=== PATIENT | female | born 1970 | race Caucasian/White ===

== ENCOUNTER 2017-06-29 00:28 | Inpatient (IN) ==
[2017-06-29] MEDS ORDERED: 0.9 % Sodium Chloride 1,000 ML IVC ONE ×2 (01:53→03:10)
--- NOTE | 2017-06-29 02:02 | Emergency Department Note ---
Disposition Clinical Impression: Dehydration, Acute kidney injury, Hypokalemia, Hyponatremia Diarrhea Qualifiers: Diarrhea type: unspecified type Qualified Code(s): R19.7 - Diarrhea, unspecified Leukocytosis Qualifiers: Leukocytosis type: unspecified Qualified Code(s): D72.829 - Elevated white blood cell count, unspecified Disposition: Admitted As Inpatient Condition: Fair Time of Disposition: 05:00 Nausea/Vomiting/Diarrhea HPI - General Chief complaint: ED Nausea/Vomiting/Diarrhea Stated complaint: diarrhea Time Seen by Provider: 06/29/17 01:46 Source: patient Limitations: no limitations - History of Present Illness HPI Narrative: Nontoxic-appearing 46-year-old female presents for evaluation of ongoing diarrhea that has been intermittent in nature for the past 10 days. This is also accompanied by a mild degree of generalized weakness/fatigue. She denies any associated abdominal pain, nausea, vomiting, fever, chills, chest pain, shortness of breath, urinary symptoms, hematochezia, melena, or hematemesis. She denies any known sick contacts. She denies any recent antibiotic usage. She states that the diarrhea is watery in nature. There is no blood or mucus. Pt Subjective Complaint: diarrhea Onset (ago): day(s) (10) Description of Diarrhea: water Associated Abdominal Pain: No Improves with: nothing Worsens with: nonthing Associated symptoms: Reports: weakness. Denies: diaphoresis, fever/chills, nausea/vomiting, dysuria, shortness of breath, syncope - Related Data Allergies Allergy/AdvReac Type Severity Reaction Status Date / Time No Known Allergies Allergy Verified 06/29/17 00:29 All systems ED: reviewed and negative except as stated. Constitutional: Reports: as per HPI, weakness. Denies: fever, chills, weight change Eyes: Denies: eye pain, eye discharge, vision change ENT ED: Denies: ear pain, throat pain, dental pain, hearing loss, epistaxis, congestion, dysphagia Cardiovascular: Denies: chest pain, palpitations, dyspnea on exertion, edema, syncope Respiratory: Denies: cough, dyspnea, wheezes, hemoptysis, stridor Gastrointestinal: Reports: as per HPI, diarrhea. Denies: abdominal pain, nausea , vomiting, constipation, hematemesis, melena, hematochezia Genitourinary: Denies: dysuria, frequency, hematuria, discharge Musculoskeletal: Denies: back pain, neck pain, arthralgia, myalgia Integumentary: Denies: rash, abrasion, lesions Neurological: Denies: headache, weakness, numbness, paresthesias, confusion, abnormal gait, vertigo Psychiatric: Denies: anxiety, depression, suicidal thoughts, homicidal thoughts , auditory hallucinations, visual hallucinations Endocrine: Denies: fatigue Hematological/Lymphatic: Denies: easy bleeding, easy bruising Allergic/Immunologic: Denies: facial swelling, urticaria Past Medical History - Past Medical History Attestation: Yes The following information was validated with the patient. Source: patient, nursing notes reviewed Medical history: Reports: hypertension Psychiatric history: Reports: no psych history - Social History Smoking Status: Never smoker Smokeless Tobacco Status: No Alcohol use: Reports: none Drug use: Reports: none Physical Exam - General Limitations: no limitations General appearance: alert, in no apparent distress - Head Head exam: atraumatic, normocephalic, normal inspection - Eye Eye exam: Present: normal appearance, PERRL, EOMI. Absent: nystagmus - ENT ENT exam: mucous membranes dry - Neck Neck exam: Present: normal inspection, full ROM, trachea midline - Chest Chest inspection: Present: normal inspection, symmetric chest wall rise - Respiratory Respiratory exam: Present: normal lung sounds bilaterally. Absent: respiratory distress, wheezes, accessory muscle use, prolonged expiratory phase - Cardiovascular Cardiovascular exam: Present: regular rate, normal rhythm, normal heart sounds - Abdominal Exam Abdominal exam: Present: soft, Non-Tender, normal bowel sounds. Absent: distention, guarding, rebound, rigidity - Extremities Exam Extremities exam: Present: normal inspection, full ROM. Absent: tenderness, pedal edema - Neurological Exam Neurological exam: Present: alert, oriented X3 - Psychiatric Psychiatric exam: Present: normal affect, normal mood - Skin Skin exam: Present: warm, dry, intact, normal color Course Course Narrative: 0450: I spoke with Dr. Roche, general surgeon airport operations specialist regarding this patient's case, presentation, laboratory, and imaging results. He states he does not feel that this is an acute appendicitis. He states that cecal wall thickening is not uncommon with the degree of reported diarrhea. He states that the patient will likely need serial CT imaging for follow-up of the "abscess cavities" visualized in the pelvis. He recommends antibiotic therapy directed towards nonspecific ulcerative colitis and treatment of her diarrhea. He states that surgery will be happy to consult the patient will need admitted to the hospitalist service for further management. I have discussed this patient's case with Dr. Sorensen. He has had a face-to- face evaluation with the patient. I have discussed Dr. Roche's recommendations and he is in agreement. Dr. Cruz, hospitalist airport operations specialist has been notified. He accepts the patient for further observation and treatment of her diarrhea, hyponatremia, hypokalemia, dehydration, and acute kidney injury. He recommends initiation of Cipro and Flagyl by IV piggyback. Vital Signs Temperature 99.3 F 06/29/17 00:29 Pulse Rate 98 06/29/17 00:29 Respiratory Rate 16 06/29/17 00:29 Blood Pressure 130/82 06/29/17 00:29 O2 Sat by Pulse Oximetry 96 06/29/17 00:29 Temperature 99.3 F 06/29/17 00:29 Pulse Rate 92 06/29/17 04:46 Respiratory Rate 18 06/29/17 04:46 Blood Pressure 115/76 06/29/17 04:46 O2 Sat by Pulse Oximetry 95 06/29/17 04:46 Oxygen Delivery Oxygen Delivery Room Air Nausea/Vomiting/Diarrhea - Medical Records Medical records reviewed: Yes I reviewed the patient's medical records. - Lab Data Lab results reviewed: Yes I reviewed the patient's lab results. Lab results narrative: Lab Results 06/29/17 06/29/17 06/29/17 Range/Units 02:30 02:30 03:45 WBC 18.3 H (4.3-11.1) K/mcL RBC 4.62 (3.82-4.97) M/mcL Hgb 12.2 (11.5-15.4) g/dL Hct 37.0 (35.3-44.9) % MCV 80.1 L (83.0-100.0) fL MCH 26.4 L (28.0-33.3) pg MCHC 33.0 (31.6-35.5) g/dL RDW 13.7 (11.5-14.5) % Plt Count 233 (140-400) K/mcL MPV 10.1 (9.4-12.4) fL Immature Gran % 1.6 (0-4) % Seg Neutrophils % 82.7 % Lymphocytes % 3.3 % Monocytes % 12.0 % Eosinophils % 0.1 % Basophils % 0.3 % Neutrophils # 15.2 H (1.6-8.9) K/mcL Lymphocytes # 0.6 (0.6-4.6) K/mcL Monocytes # 2.2 H (0.0-1.3) K/mcL Eosinophils # 0.0 (0.0-0.6) K/mcL Basophils # 0.1 (0.0-0.2) K/mcL Sodium 131 L (136-145) mEq/L Potassium 2.7 L (3.5-5.1) mEq/L Chloride 91 L (98-107) mEq/L Carbon Dioxide 28 (23-29) mEq/L BUN 17 (6-20) mg/dL Creatinine 1.26 H (0.60-1.20) mg/dL Est GFR ( Amer) 55 L (> 60) Est GFR (Non-Af Amer) 46 L (> 60) BUN/Creatinine Ratio 13 (6-26) Glucose 113 H (70-105) mg/dL Calculated Osmolality 274 L (280-300) Calcium 9.0 (8.6-10.3) mg/dL Magnesium 1.6 (1.6-2.6) mg/dL Total Bilirubin 1.2 H (0.3-1.0) mg/dL AST 19 (13-39) Units/L ALT 32 (7-52) Units/L Alkaline Phosphatase 140 H (34-104) Units/L Serum Total Protein 6.5 (6.4-8.9) g/dL Albumin 3.2 L (3.5-5.7) g/dL Globulin 3.3 (2.4-3.5) g/dL Albumin/Globulin Ratio 1.0 L (1.1-2.2) Lipase 16 (11-82) Units/L Urine Color Yellow (Yellow) Urine Clarity Cloudy A (Clear) Urine pH 6.0 (5.0-8.0) pH Units Ur Specific [place] 1.010 (1.010-1.025) Urine Protein 30 H (Neg-Trace) mg/dL Urine Glucose (UA) Normal (Normal) mg/dL Urine Ketones Trace H (Negative) mg/dL Urine Blood Negative (Negative) Urine Nitrite Negative (Negative) Urine Bilirubin Negative (Negative) Urine Urobilinogen Normal (Normal) mg/dL Ur Leukocyte Esterase Trace H (Negative) Urine Microscopic RBC 0-3 (0-3) per hpf Urine Microscopic WBC 15-30 H (0-3) per hpf Ur Squamous Epith Cells Many H (None-Few) per lpf Ur Transition Epith Cell Moderate H (None-Few) per hpf Urine Bacteria Few (None-Few) per hpf Hyaline Casts Few (None-Few) per lpf Ur Culture Indicated? NO. (NO) Urine Test (Negative) 06/29/17 Range/Units 03:45 WBC (4.3-11.1) K/mcL RBC (3.82-4.97) M/mcL Hgb (11.5-15.4) g/dL Hct (35.3-44.9) % MCV (83.0-100.0) fL MCH (28.0-33.3) pg MCHC (31.6-35.5) g/dL RDW (11.5-14.5) % Plt Count (140-400) K/mcL MPV (9.4-12.4) fL Immature Gran % (0-4) % Seg Neutrophils % % Lymphocytes % % Monocytes % % Eosinophils % % Basophils % % Neutrophils # (1.6-8.9) K/mcL Lymphocytes # (0.6-4.6) K/mcL Monocytes # (0.0-1.3) K/mcL Eosinophils # (0.0-0.6) K/mcL Basophils # (0.0-0.2) K/mcL Sodium (136-145) mEq/L Potassium (3.5-5.1) mEq/L Chloride (98-107) mEq/L Carbon Dioxide (23-29) mEq/L BUN (6-20) mg/dL Creatinine (0.60-1.20) mg/dL Est GFR ( Amer) (> 60) Est GFR (Non-Af Amer) (> 60) BUN/Creatinine Ratio (6-26) Glucose (70-105) mg/dL Calculated Osmolality (280-300) Calcium (8.6-10.3) mg/dL Magnesium (1.6-2.6) mg/dL Total Bilirubin (0.3-1.0) mg/dL AST (13-39) Units/L ALT (7-52) Units/L Alkaline Phosphatase (34-104) Units/L Serum Total Protein (6.4-8.9) g/dL Albumin (3.5-5.7) g/dL Globulin (2.4-3.5) g/dL Albumin/Globulin Ratio (1.1-2.2) Lipase (11-82) Units/L Urine Color (Yellow) Urine Clarity (Clear) Urine pH (5.0-8.0) pH Units Ur Specific [place] (1.010-1.025) Urine Protein (Neg-Trace) mg/dL Urine Glucose (UA) (Normal) mg/dL Urine Ketones (Negative) mg/dL Urine Blood (Negative) Urine Nitrite (Negative) Urine Bilirubin (Negative) Urine Urobilinogen (Normal) mg/dL Ur Leukocyte Esterase (Negative) Urine Microscopic RBC (0-3) per hpf Urine Microscopic WBC (0-3) per hpf Ur Squamous Epith Cells (None-Few) per lpf Ur Transition Epith Cell (None-Few) per hpf Urine Bacteria (None-Few) per hpf Hyaline Casts (None-Few) per lpf Ur Culture Indicated? (NO) Urine Test Negative (Negative) Result diagrams: 06/29/17 02:30 06/29/17 02:30 Lab Results 06/29/17 06/29/17 06/29/17 Range/Units 02:30 02:30 03:45 WBC 18.3 H (4.3-11.1) K/mcL RBC 4.62 (3.82-4.97) M/mcL Hgb 12.2 (11.5-15.4) g/dL Hct 37.0 (35.3-44.9) % MCV 80.1 L (83.0-100.0) fL MCH 26.4 L (28.0-33.3) pg MCHC 33.0 (31.6-35.5) g/dL RDW 13.7 (11.5-14.5) % Plt Count 233 (140-400) K/mcL MPV 10.1 (9.4-12.4) fL Immature Gran % 1.6 (0-4) % Seg Neutrophils % 82.7 % Lymphocytes % 3.3 % Monocytes % 12.0 % Eosinophils % 0.1 % Basophils % 0.3 % Neutrophils # 15.2 H (1.6-8.9) K/mcL Lymphocytes # 0.6 (0.6-4.6) K/mcL Monocytes # 2.2 H (0.0-1.3) K/mcL Eosinophils # 0.0 (0.0-0.6) K/mcL Basophils # 0.1 (0.0-0.2) K/mcL Sodium 131 L (136-145) mEq/L Potassium 2.7 L (3.5-5.1) mEq/L Chloride 91 L (98-107) mEq/L Carbon Dioxide 28 (23-29) mEq/L BUN 17 (6-20) mg/dL Creatinine 1.26 H (0.60-1.20) mg/dL Est GFR ( Amer) 55 L (> 60) Est GFR (Non-Af Amer) 46 L (> 60) BUN/Creatinine Ratio 13 (6-26) Glucose 113 H (70-105) mg/dL Calculated Osmolality 274 L (280-300) Calcium 9.0 (8.6-10.3) mg/dL Magnesium 1.6 (1.6-2.6) mg/dL Total Bilirubin 1.2 H (0.3-1.0) mg/dL AST 19 (13-39) Units/L ALT 32 (7-52) Units/L Alkaline Phosphatase 140 H (34-104) Units/L Serum Total Protein 6.5 (6.4-8.9) g/dL Albumin 3.2 L (3.5-5.7) g/dL Globulin 3.3 (2.4-3.5) g/dL Albumin/Globulin Ratio 1.0 L (1.1-2.2) Lipase 16 (11-82) Units/L Urine Color Yellow (Yellow) Urine Clarity Cloudy A (Clear) Urine pH 6.0 (5.0-8.0) pH Units Ur Specific [place] 1.010 (1.010-1.025) Urine Protein 30 H (Neg-Trace) mg/dL Urine Glucose (UA) Normal (Normal) mg/dL Urine Ketones Trace H (Negative) mg/dL Urine Blood Negative (Negative) Urine Nitrite Negative (Negative) Urine Bilirubin Negative (Negative) Urine Urobilinogen Normal (Normal) mg/dL Ur Leukocyte Esterase Trace H (Negative) Urine Microscopic RBC 0-3 (0-3) per hpf Urine Microscopic WBC 15-30 H (0-3) per hpf Ur Squamous Epith Cells Many H (None-Few) per lpf Ur Transition Epith Cell Moderate H (None-Few) per hpf Urine Bacteria Few (None-Few) per hpf Hyaline Casts Few (None-Few) per lpf Ur Culture Indicated? NO. (NO) Urine Test (Negative) 06/29/17 Range/Units 03:45 WBC (4.3-11.1) K/mcL RBC (3.82-4.97) M/mcL Hgb (11.5-15.4) g/dL Hct (35.3-44.9) % MCV (83.0-100.0) fL MCH (28.0-33.3) pg MCHC (31.6-35.5) g/dL RDW (11.5-14.5) % Plt Count (140-400) K/mcL MPV (9.4-12.4) fL Immature Gran % (0-4) % Seg Neutrophils % % Lymphocytes % % Monocytes % % Eosinophils % % Basophils % % Neutrophils # (1.6-8.9) K/mcL Lymphocytes # (0.6-4.6) K/mcL Monocytes # (0.0-1.3) K/mcL Eosinophils # (0.0-0.6) K/mcL Basophils # (0.0-0.2) K/mcL Sodium (136-145) mEq/L Potassium (3.5-5.1) mEq/L Chloride (98-107) mEq/L Carbon Dioxide (23-29) mEq/L BUN (6-20) mg/dL Creatinine (0.60-1.20) mg/dL Est GFR ( Amer) (> 60) Est GFR (Non-Af Amer) (> 60) BUN/Creatinine Ratio (6-26) Glucose (70-105) mg/dL Calculated Osmolality (280-300) Calcium (8.6-10.3) mg/dL Magnesium (1.6-2.6) mg/dL Total Bilirubin (0.3-1.0) mg/dL AST (13-39) Units/L ALT (7-52) Units/L Alkaline Phosphatase (34-104) Units/L Serum Total Protein (6.4-8.9) g/dL Albumin (3.5-5.7) g/dL Globulin (2.4-3.5) g/dL Albumin/Globulin Ratio (1.1-2.2) Lipase (11-82) Units/L Urine Color (Yellow) Urine Clarity (Clear) Urine pH (5.0-8.0) pH Units Ur Specific [place] (1.010-1.025) Urine Protein (Neg-Trace) mg/dL Urine Glucose (UA) (Normal) mg/dL Urine Ketones (Negative) mg/dL Urine Blood (Negative) Urine Nitrite (Negative) Urine Bilirubin (Negative) Urine Urobilinogen (Normal) mg/dL Ur Leukocyte Esterase (Negative) Urine Microscopic RBC (0-3) per hpf Urine Microscopic WBC (0-3) per hpf Ur Squamous Epith Cells (None-Few) per lpf Ur Transition Epith Cell (None-Few) per hpf Urine Bacteria (None-Few) per hpf Hyaline Casts (None-Few) per lpf Ur Culture Indicated? (NO) Urine Test Negative (Negative) - Radiology Data Radiology results reviewed: Yes I reviewed the patient's radiology results. Abdomen/Pelvis CT 06/29/17 03:00 IMPRESSION: There are multiple abscess cavities in the pelvis. Perforated appendicitis should be considered as the appendix is not definitely identified and there is thickening of the cecum. D/ / Rivera Sharp MD / Rivera Sharp MD Interpreting Provider: Rivera Sharp MD Chest X-Ray 06/29/17 03:11 IMPRESSION: Right basilar atelectasis or pneumonia. D/ / Rivera Sharp MD / Rivera Sharp MD Interpreting Provider: Rivera Sharp MD - EKG Data EKG attestation: Yes I reviewed and interpreted this EKG. EKG results narrative: EKG reviewed by Dr. Sorensen as well. EKG shows a sinus rhythm at a rate of 93 bpm. OH interval 168, QRS duration 93, QT/QTc interval 344/395. No ectopy noted. No STEMI. Attestation Statement - Attestation Attestation: I, Dawit Sorensen MD, personally evaluated this patient and discussed their management with the midlevel provicer, PAC/STEEL DETAILER. I reviewed the midlevel provider 's note and agree with the documented findings, medical decision making, and plan of care. 46-year-old female presents to the emergency department with a complaint of diarrhea and generalized weakness. Patient states that the diarrhea started about 9 days ago and she had watery diarrhea for 1 day or may be too. This then resolved and she did fine for several days until a few days ago when the diarrhea returned. The diarrhea has been bad for the last 24 hours and she complains of just severe generalized weakness. No fever. No abdominal pain. No melena, hematemesis, or hematochezia. No urinary symptoms. On examination patient is a well-developed well-nourished well-appearing female in no acute distress. She is alert and oriented 3. There is no cyanosis or diaphoresis. Breath sounds are clear and equal bilaterally. Heart regular rate and rhythm. Abdomen is soft and nontender with slightly increased bowel sounds. No guarding or rebound tenderness. No CVA tenderness. Labs reviewed. CT of the abdomen was suspicious for perforated appendicitis. Mid-level discussed the case with the surgeon on-call, Dr. Roche, and he did not feel the patient had appendicitis with her history and lack of abdominal pain. He recommended admission by the hospitalist and he will consult on the patient. The hospitalist, Dr. Cruz, was consulted and accepted admission of the patient.
[2017-06-29 02:42] LABS: Basophils # 0.1 K/mcL (0.0-0.2); Basophils % 0.3 %; Eosinophils % 0.1 %; Hemoglobin 12.2 g/dL (11.5-15.4); Immature Granulocytes % 1.6 % (0-4); Lymphocytes # 0.6 K/mcL (0.6-4.6); Lymphocytes % 3.3 %; Mean Corpuscular Hemoglobin 26.4 pg (28.0-33.3); Mean Corpuscular Volume 80.1 fL (83.0-100.0); Mean Platelet Volume 10.1 fL (9.4-12.4); Monocytes # 2.2 K/mcL (0.0-1.3); Neutrophils # 15.2 K/mcL (1.6-8.9); Platelet Count 233 K/mcL (140-400); Red Blood Count 4.62 M/mcL (3.82-4.97); Red Cell Distribution Width 13.7 % (11.5-14.5); Segmented Neutrophils % 82.7 %
[2017-06-29 03:03] LABS: Albumin 3.2 g/dL (3.5-5.7); Bilirubin,Total 1.2 mg/dL (0.3-1.0); Globulin 3.3 g/dL (2.4-3.5); Magnesium 1.6 mg/dL (1.6-2.6); Potassium 2.7 mEq/L (3.5-5.1); Total Protein 6.5 g/dL (6.4-8.9)
[2017-06-29] MEDS ORDERED: Potassium Chloride 40 MEQ, Lidocaine 1% 2 ML in D5% in Water 500 ML IVPB ONE (03:10)
[2017-06-29 04:02] LABS: Bilirubin,Urine Negative (Negative); Blood,Urine Negative (Negative); Clarity,Urine Cloudy (Clear); Color,Urine Yellow (Yellow); Glucose,Urine (UA) Normal (Normal); Ketones,Urine Trace mg/dL (Negative); Leukocyte Esterase,Urine Trace (Negative); Nitrite,Urine Negative (Negative); Protein,Urine 30 mg/dL (Neg-Trace); Urobilinogen,Urine Normal (Normal)
[2017-06-29 04:04] LABS: Hyaline Casts,Urine Few per lpf (None-Few); RBC,Urine 0-3 per hpf (0-3); Squamous Epithelial Cell,Urine Many per lpf (None-Few); WBC,Urine 15-30 per hpf (0-3)
[2017-06-29 04:18] LABS: Bacteria,Urine Few per hpf (None-Few); Transitional Epi Cells,Urine Moderate per hpf (None-Few)
[2017-06-29] MEDS ORDERED: MetroNIDAZOLE 500 MG/100 ML 500 MG/100 ML BAG IVPB ONE (05:10)
[2017-06-29] MEDS ORDERED: Ondansetron 4 MG/2 ML VIAL IVP PRN (08:14)
[2017-06-29] MEDS ORDERED: *HR* Morphine 2 MG/ML SYRINGE IVP PRN (08:14)
--- NOTE | 2017-06-29 08:22 | Internal Med History&Physical ---
Date of Encounter: 06/29/17 Time of Encounter: 08:19 Assessment and Plan (1) Diarrhea Current visit: Yes Status: Acute Check stool studies including C diff, culture, ova and parasites will be checked. contact precautions Qualifiers: Qualified Code(s): R19.7 - Diarrhea, unspecified (2) Pelvic abscess in female Current visit: Yes Status: Acute Etiology unclear. We will cover the patient for now with antibiotics Zosyn Flagyl. Appreciate surgery and gastroenterology input. On CT scan there is mention of rupture appendixes a cause. Abdominal exam during my interview is benign with no suggestion of appendicitis (3) Hypokalemia Current visit: Yes Status: Acute Due to diarrhea replace and recheck. (4) Elevated troponin Current visit: Yes Status: Acute Due to demand ischemia. Trend troponin (5) HEATHER (acute kidney injury) Current visit: Yes Status: Acute due to dehydration: hydrate. Internal Medicine - H&P: HPI Chief complaint: diarrhea History of present illness: Ms. 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 For the past 10 days patient has been having watery diarrhea approximately one episode every 4 hours. She has not noticed any blood or mucous stool. She denies any abdominal pain. Appetite has declined and she has later been eating clear liquids. She had low-grade fever on arrival to emergency room temperature 99.3. She started experiencing generalized weakness lethargy. She denies any recent antibiotic use. No recent travel. She denies any hematemesis melena or hematochezia. She works in the hospital around patients. She denies any prior similar symptoms. Never had a colonoscopy. No family history of inflammatory bowel disease. Prior abdominal surgeries include 2 C-sections. Past Med Surg Social Fam HX - Past Medical History Medical history: hypertension Psychiatric history: no psych history - Past Surgical History Surgical History: - Social History Smoking Status: Never smoker Smokeless Tobacco Status: No Alcohol use: none Drug use: none Internal Medicine - H&P: Meds 3 Allergy/AdvReac Type Severity Reaction Status Date / Time No Known Allergies Allergy Verified 06/29/17 00:29 All Systems PM: A 10-system review of systems was performed and is negative for pertinent findings except as documented above in the HPI. Review of systems: 10 point review of systems is negative except for HPI - Constitutional Vitals: Temp Pulse Resp BP Pulse Ox 99.3 F 93 16 118/78 94 06/29/17 06:20 06/29/17 06:20 06/29/17 06:20 06/29/17 06:20 06/29/17 06:20 Exam: Gen.: patient is alert oriented times 3 not in distress. Cardiac: normal S1 S2 no additional sounds are murmurs. Chest: clear to auscultation. Abdomen: soft nontender nondistended. Lower extremity no swelling mucous membranes: moist Internal Med - H&P Results - Labs CBC & Chem 7: 06/29/17 02:30 06/29/17 02:30
[2017-06-29] MEDS: Piperacillin/Tazobactam 3.375 GM/200 ML BAG IVPB SCH ×2 (09:42→17:30)
[2017-06-29] MEDS: Pantoprazole 40 MG VIAL IVP SCH (09:42)
[2017-06-29 11:18] LABS: Adenovirus F 40/41 PCR Not detected (Not detect); Astrovirus PCR Not detected (Not detect); C.difficile Toxin A/B by PCR Not detected (Not detect); Campylobacter by PCR Not detected (Not detect); Cryptosporidium by PCR Not detected (Not detect); Cyclospora cayetanensis PCR Not detected (Not detect); E. coli O157 by PCR Not detected (Not detect); Entamoeba histolytica PCR Not detected (Not detect); Enteroaggregative E.coli(EAEC) Not detected (Not detect); Enteropathogenic E.coli(EPEC) Not detected (Not detect); Enterotoxigenic E.coli (ETEC) Not detected (Not detect); Giardia lamblia PCR Not detected (Not detect); Norovirus GI/GII PCR Not detected (Not detect); Plesiomonas shigelloides PCR Not detected (Not detect); Rotavirus A PCR Not detected (Not detect); Salmonella PCR Not detected (Not detect); Sapovirus PCR Not detected (Not detect); Shig/EnteroinvasiveE coli EIEC Not detected (Not detect); Shigalike tox-prod E coli STEC Not detected (Not detect); Vibrio PCR Not detected (Not detect); Vibrio cholerae PCR Not detected (Not detect); Yersinia enterocolitica PCR Not detected (Not detect)
[2017-06-29 12:11] LABS: Alanine Aminotransferase 25 Units/L (7-52); Albumin 2.6 g/dL (3.5-5.7); Albumin/Globulin Ratio 0.9 (1.1-2.2); Alkaline Phosphatase 115 Units/L (34-104); Aspartate Amino Transferase 14 Units/L (13-39); BUN/Creatinine Ratio 11 (6-26); Blood Urea Nitrogen 12 mg/dL (6-20); Calcium 8.3 mg/dL (8.6-10.3); Carbon Dioxide 27 mEq/L (23-29); Chloride 99 mEq/L (98-107); Glucose 100 mg/dL (70-105); Osmolality,Calculated 280 (280-300); Sodium 135 mEq/L (136-145); Total Protein 5.6 g/dL (6.4-8.9); eGFR For African Americans > 60 (> 60); eGFR For Non-African Americans 56 (> 60)
--- NOTE | 2017-06-29 17:00 | General Surgery Consult Note ---
<Chioma Dominguez - Last Filed: 06/29/17 16:57> Date of Encounter: 06/29/17 Time of Encounter: 08:30 Assessment and Plan (1) Diarrhea Current Visit: Yes Status: Acute Concerning for infectious vs inflammatory diarrhea. Appendicitis unlikely due to physical exam findings. Patient reports consistent diarrhea since . 5 to [address] Watery st[address] a day. CT abd/pelvis demonstrate multiple abscess cavities and pelvis. Thickened cecum. Perforated appendix considered according to CT. Abdominal exam was benign. Bowel sounds present. No tenderness, guarding, rebound afebrile, hemodynamically stable WBC 18.3 There is no indication for surgery on this patient at this time. Recommend gastroenterology to see patient due to most likely infectious vs inflammatory cause of diarrhea continue IV antibiotics clear liquid diet IVF Qualifiers: Diarrhea type: unspecified type Qualified Code(s): R19.7 - Diarrhea, unspecified History of Present Illness Consult date: 06/29/17 Reason for consult: other (Diarrhea) Requesting physician: Franko Machado History of present illness: Ms Peterson is a 46yo female with a past medical history of hypertension who presented to [facility] complaining of watery diarrhea that started and has been consistent since . She has about 5 to 6 watery diarrhea a day. Nothing made the diarrhea better or worse. [facility]. She works out [employer]. She has not been on antibiotics recently and has no history of C.diff. She denied traveling. She denied abdominal pain, melena, nausea, vomiting, chest pain, shortness of breath. Past Med Surg Social Fam HX - Past Medical History Medical history: hypertension Psychiatric history: no psych history - Past Surgical History Surgical History: - Social History Smoking Status: Never smoker Smokeless Tobacco Status: No Alcohol use: none Drug use: none Medications and Allergies Labetalol HCl [Labetalol HCl] 200 mg PO DAILY 06/29/17 [History] Triamterene/HCTZ 37.5/25mg [Dyazide] 1 tab PO DAILY 06/29/17 [History] 3 Allergy/AdvReac Type Severity Reaction Status Date / Time No Known Allergies Allergy Verified 06/29/17 00:29 Review of Systems All systems PM: A 10-system review of systems was performed and is negative for pertinent findings except as documented above in the HPI. - Constitutional fever(s), weakness, no chills - Cardiovascular no chest pain, no palpitations - Respiratory no cough, no dyspnea - Gastrointestinal diarrhea, no abdominal pain, no constipation, no hematochezia, no melena, no nausea, no vomiting - Genitourinary Genitourinary: no dysuria General Surgery Exam Initial Vital Signs Temp Pulse Resp BP Pulse Ox 99.3 F 98 16 130/82 96 06/29/17 00:29 06/29/17 00:06/29/17 00:06/29/17 00:29 06/29/17 00:29 - General physical appearance well developed, well nourished, no distress - Eyes normal ocular movement. negative: icteric - Respiratory normal expansion, normal respiratory effort, clear to auscultation - Cardiovascular Cardiovascular exam: Present: RRR - Abdomen Abdomen general surgery: Present: bowel sounds present, soft, non tender. Absent: guarding, rebound - Psychiatric Psychiatric general surgery: Present: A&Ox3 Exam Initial Vital Signs Temp Pulse Resp BP Pulse Ox 99.3 F 98 16 130/82 96 06/29/17 00:29 06/29/17 00:29 06/29/17 00:29 06/29/17 00:29 06/29/17 00:29 Results - Labs 06/29/17 02:30 06/29/17 11:50 Abnormal lab results WBC 18.3 K/mcL (4.3-11.1) H 06/29/17 02:30 MCV 80.1 fL (83.0-100.0) L 06/29/17 02:30 MCH 26.4 pg (28.0-33.3) L 06/29/17 02:30 Neutrophils # 15.2 K/mcL (1.6-8.9) H 06/29/17 02:30 Monocytes # 2.2 K/mcL (0.0-1.3) H 06/29/17 02:30 Sodium 135 mEq/L (136-145) L 06/29/17 11:50 Potassium 3.0 mEq/L (3.5-5.1) L 06/29/17 11:50 Est GFR (Non-Af Amer) 56 (> 60) L 06/29/17 11:50 Calcium 8.3 mg/dL (8.6-10.3) L 06/29/17 11:50 Magnesium 1.5 mg/dL (1.6-2.6) L 06/29/17 09:57 Alkaline Phosphatase 115 Units/L (34-104) H 06/29/17 11:50 Serum Total Protein 5.6 g/dL (6.4-8.9) L 06/29/17 11:50 Albumin 2.6 g/dL (3.5-5.7) L 06/29/17 11:50 Albumin/Globulin Ratio 0.9 (1.1-2.2) L 06/29/17 11:50 Urine Clarity Cloudy (Clear) A 06/29/17 03:45 Urine Protein 30 mg/dL (Neg-Trace) H 06/29/17 03:45 Urine Ketones Trace mg/dL (Negative) H 06/29/17 03:45 Ur Leukocyte Esterase Trace (Negative) H 06/29/17 03:45 Urine Microscopic WBC 15-30 per hpf (0-3) H 06/29/17 03:45 Ur Squamous Epith Cells Many per lpf (None-Few) H 06/29/17 03:45 Ur Transition Epith Cell Moderate per hpf (None-Few) H 06/29/17 03:45 Diabetes panel 06/29/17 06/29/17 Range/Units 09:57 11:50 Sodium 135 L (136-145) mEq/L Potassium 3.0 L 3.0 L (3.5-5.1) mEq/L Chloride 99 (98-107) mEq/L Carbon Dioxide 27 (23-29) mEq/L BUN 12 (6-20) mg/dL Creatinine 1.06 (0.60-1.20) mg/dL Glucose 100 (70-105) mg/dL Calcium 8.3 L (8.6-10.3) mg/dL AST 14 (13-39) Units/L ALT 25 (7-52) Units/L Alkaline Phosphatase 115 H (34-104) Units/L Albumin 2.6 L (3.5-5.7) g/dL Calcium panel 06/29/17 Range/Units 11:50 Calcium 8.3 L (8.6-10.3) mg/dL Albumin 2.6 L (3.5-5.7) g/dL Pituitary panel 06/29/17 06/29/17 Range/Units 09:57 11:50 Sodium 135 L (136-145) mEq/L Potassium 3.0 L 3.0 L (3.5-5.1) mEq/L Chloride 99 (98-107) mEq/L Carbon Dioxide 27 (23-29) mEq/L BUN 12 (6-20) mg/dL Creatinine 1.06 (0.60-1.20) mg/dL Glucose 100 (70-105) mg/dL Calcium 8.3 L (8.6-10.3) mg/dL Adrenal panel 06/29/17 06/29/17 Range/Units 09:57 11:50 Sodium 135 L (136-145) mEq/L Potassium 3.0 L 3.0 L (3.5-5.1) mEq/L Chloride 99 (98-107) mEq/L Carbon Dioxide 27 (23-29) mEq/L BUN 12 (6-20) mg/dL Creatinine 1.06 (0.60-1.20) mg/dL Glucose 100 (70-105) mg/dL Calcium 8.3 L (8.6-10.3) mg/dL Total Bilirubin 1.0 (0.3-1.0) mg/dL AST 14 (13-39) Units/L ALT 25 (7-52) Units/L Alkaline Phosphatase 115 H (34-104) Units/L Albumin 2.6 L (3.5-5.7) g/dL All other labs normal. Consult Discharge Plan - Plan Referrals: Jas Monge MD [Primary Care Provider] - <Rikki Roche - Last Filed: 06/29/17 18:08> Date of Encounter: 06/29/17 Review of Systems All systems PM: A 10-system review of systems was performed and is negative for pertinent findings except as documented above in the HPI. General Surgery Exam Initial Vital Signs Temp Pulse Resp BP Pulse Ox 99.3 F 98 16 130/82 96 06/29/17 00:29 06/29/17 00:29 06/29/17 00:29 06/29/17 00:06/29/17 00:29 Exam Initial Vital Signs Temp Pulse Resp BP Pulse Ox 99.3 F 98 16 130/82 96 06/29/17 00:29 06/29/17 00:29 06/29/17 00:29 06/29/17 00:29 06/29/17 00:29 Results - Labs 06/29/17 02:30 06/29/17 11:50 Abnormal lab results WBC 18.3 K/mcL (4.3-11.1) H 06/29/17 02:30 MCV 80.1 fL (83.0-100.0) L 06/29/17 02:30 MCH 26.4 pg (28.0-33.3) L 06/29/17 02:30 Neutrophils # 15.2 K/mcL (1.6-8.9) H 06/29/17 02:30 Monocytes # 2.2 K/mcL (0.0-1.3) H 06/29/17 02:30 Sodium 135 mEq/L (136-145) L 06/29/17 11:50 Potassium 3.0 mEq/L (3.5-5.1) L 06/29/17 11:50 Est GFR (Non-Af Amer) 56 (> 60) L 06/29/17 11:50 Calcium 8.3 mg/dL (8.6-10.3) L 06/29/17 11:50 Magnesium 1.5 mg/dL (1.6-2.6) L 06/29/17 09:57 Alkaline Phosphatase 115 Units/L (34-104) H 06/29/17 11:50 Serum Total Protein 5.6 g/dL (6.4-8.9) L 06/29/17 11:50 Albumin 2.6 g/dL (3.5-5.7) L 06/29/17 11:50 Albumin/Globulin Ratio 0.9 (1.1-2.2) L 06/29/17 11:50 Urine Clarity Cloudy (Clear) A 06/29/17 03:45 Urine Protein 30 mg/dL (Neg-Trace) H 06/29/17 03:45 Urine Ketones Trace mg/dL (Negative) H 06/29/17 03:45 Ur Leukocyte Esterase Trace (Negative) H 06/29/17 03:45 Urine Microscopic WBC 15-30 per hpf (0-3) H 06/29/17 03:45 Ur Squamous Epith Cells Many per lpf (None-Few) H 06/29/17 03:45 Ur Transition Epith Cell Moderate per hpf (None-Few) H 06/29/17 03:45 Diabetes panel 06/29/17 06/29/17 Range/Units 09:57 11:50 Sodium 135 L (136-145) mEq/L Potassium 3.0 L 3.0 L (3.5-5.1) mEq/L Chloride 99 (98-107) mEq/L Carbon Dioxide 27 (23-29) mEq/L BUN 12 (6-20) mg/dL Creatinine 1.06 (0.60-1.20) mg/dL Glucose 100 (70-105) mg/dL Calcium 8.3 L (8.6-10.3) mg/dL AST 14 (13-39) Units/L ALT 25 (7-52) Units/L Alkaline Phosphatase 115 H (34-104) Units/L Albumin 2.6 L (3.5-5.7) g/dL Calcium panel 06/29/17 Range/Units 11:50 Calcium 8.3 L (8.6-10.3) mg/dL Albumin 2.6 L (3.5-5.7) g/dL Pituitary panel 06/29/17 06/29/17 Range/Units 09:57 11:50 Sodium 135 L (136-145) mEq/L Potassium 3.0 L 3.0 L (3.5-5.1) mEq/L Chloride 99 (98-107) mEq/L Carbon Dioxide 27 (23-29) mEq/L BUN 12 (6-20) mg/dL Creatinine 1.06 (0.60-1.20) mg/dL Glucose 100 (70-105) mg/dL Calcium 8.3 L (8.6-10.3) mg/dL Adrenal panel 06/29/17 06/29/17 Range/Units 09:57 11:50 Sodium 135 L (136-145) mEq/L Potassium 3.0 L 3.0 L (3.5-5.1) mEq/L Chloride 99 (98-107) mEq/L Carbon Dioxide 27 (23-29) mEq/L BUN 12 (6-20) mg/dL Creatinine 1.06 (0.60-1.20) mg/dL Glucose 100 (70-105) mg/dL Calcium 8.3 L (8.6-10.3) mg/dL Total Bilirubin 1.0 (0.3-1.0) mg/dL AST 14 (13-39) Units/L ALT 25 (7-52) Units/L Alkaline Phosphatase 115 H (34-104) Units/L Albumin 2.6 L (3.5-5.7) g/dL All other labs normal. - Attending Attestation I examined this patient and my medical decision-making was reviewed with the Resident Physician. I agree with the documented findings, disposition and treatment plan as described except to the extent set forth below. The patient is seen and evaluated with rest and on morning rounds. The patient has onset of nonbloody diarrhea associated with mild abdominal discomfort. There are fluid collections in the abdomen and the entire colon is edematous by CAT scan. I personally reviewed the CAT scan images and feel the findings are consistent with infectious colitis. Inflammatory colitis is less likely. I have recommended an infectious workup of her diarrhea, likely C. difficile. I am also recommending gastroenterology evaluation. Rikki Roche MD FACS
[2017-06-29] MEDS: 0.9 % Sodium Chloride 1,000 ML IVC SCH (17:25)
[2017-06-29] MEDS: MetroNIDAZOLE 500 MG/100 ML 500 MG/100 ML BAG IVPB SCH (17:26)
[2017-06-29] MEDS: *HR* Heparin 5,000 UNIT/ML VIAL SQ SCH (17:33)
[2017-06-30] MEDS: MetroNIDAZOLE 500 MG/100 ML 500 MG/100 ML BAG IVPB SCH ×4 (01:16→23:41)
[2017-06-30] MEDS: Piperacillin/Tazobactam 3.375 GM/200 ML BAG IVPB SCH ×4 (01:17→23:40)
[2017-06-30 04:39] LABS: Basophils % 0.2 %; Eosinophils % 0.2 %; Hematocrit 32.4 % (35.3-44.9); Hemoglobin 10.3 g/dL (11.5-15.4); Immature Granulocytes % 0.9 % (0-4); Lymphocytes # 0.5 K/mcL (0.6-4.6); Mean Corpuscular HGB Conc 31.8 g/dL (31.6-35.5); Mean Corpuscular Hemoglobin 25.9 pg (28.0-33.3); Mean Corpuscular Volume 81.4 fL (83.0-100.0); Mean Platelet Volume 10.4 fL (9.4-12.4); Monocytes # 1.6 K/mcL (0.0-1.3); Neutrophils # 10.8 K/mcL (1.6-8.9); Platelet Count 184 K/mcL (140-400); Red Blood Count 3.98 M/mcL (3.82-4.97); Red Cell Distribution Width 13.8 % (11.5-14.5); Segmented Neutrophils % 82.7 %
[2017-06-30] MEDS: 0.9 % Sodium Chloride 1,000 ML IVC SCH ×2 (04:44→14:51)
[2017-06-30] MEDS: *HR* Heparin 5,000 UNIT/ML VIAL SQ SCH ×2 (04:45→17:53)
[2017-06-30 04:47] LABS: Alanine Aminotransferase 20 Units/L (7-52); Albumin 2.5 g/dL (3.5-5.7); Alkaline Phosphatase 96 Units/L (34-104); Aspartate Amino Transferase 11 Units/L (13-39); BUN/Creatinine Ratio 9 (6-26); Bilirubin,Total 0.9 mg/dL (0.3-1.0); Blood Urea Nitrogen 9 mg/dL (6-20); C-Reactive Protein 196 mg/L (Less than 10); Carbon Dioxide 26 mEq/L (23-29); Chloride 100 mEq/L (98-107); Globulin 2.6 g/dL (2.4-3.5); Glucose 95 mg/dL (70-105); Magnesium 1.4 mg/dL (1.6-2.6); Osmolality,Calculated 276 (280-300); Potassium 2.8 mEq/L (3.5-5.1); Sodium 134 mEq/L (136-145); Total Protein 5.1 g/dL (6.4-8.9); eGFR For African Americans > 60 (> 60); eGFR For Non-African Americans 57 (> 60)
[2017-06-30] MEDS: Pantoprazole 40 MG VIAL IVP SCH (07:59)
[2017-06-30] MEDS ORDERED: Potassium Chloride 40 MEQ, Lidocaine 1% 2 ML in D5% in Water 500 ML IVPB ONE (08:02)
[2017-06-30] MEDS ORDERED: Potassium Chloride 40 MEQ, Lidocaine 1% 2 ML in D5% in Water 500 ML IVPB SCH (08:45)
--- NOTE | 2017-06-30 08:55 | General Surgery Progress Note ---
Addendum entered and electronically signed by Chioma Dominguez DO 06/30/17 09:38: Patient reported that she knew her potassium was low yesterday and no one replaced it. We assured her we would address it today. Original Note: <AlbertoChioma - Last Filed: 06/30/17 08:51> Date of Encounter: 06/30/17 Time of Encounter: 07:00 - Assessment and Plan (1) Diarrhea Current Visit: Yes Status: Acute Concerning for infectious vs inflammatory diarrhea. Appendicitis unlikely due to physical exam findings. WBC 13.1 improving, hemodynamically stable Stool tests were negative for infectious and parasitic etiology thus far Abdominal exam was benign. Bowel sounds present. No tenderness, guarding, rebound Patient reports consistent non bloody diarrhea since [place]. 5-6 Watery stools a day. CT abd/pelvis demonstrate multiple abscess cavities and pelvis. Thickened cecum. Perforated appendix considered according to CT. There is no indication for surgery on this patient at this time. Recommend gastroenterology to see patient due to most likely infectious vs inflammatory cause of diarrhea continue IV antibiotics zosyn day 2 and flagyl day 2 clear liquid diet IVF Qualifiers: Diarrhea type: unspecified type Qualified Code(s): R19.7 - Diarrhea, unspecified Subjective Patient reports: feels better, bowel movement, nausea, afebrile Narrative: She reported that her diarrhea is improving and she is having less episodes. She had a couple bowel movements in the night but they were more formed. She had nausea overnight. No fever, chills, or other complaints. Objective Vital Signs - Last 8 Hours Temp Pulse Resp BP Pulse Ox 06/30/17 07:34 101.9 F H 88 14 122/81 96 06/30/17 05:00 98.4 F 91 18 115/59 97 Intake and Output 06/29/17 06/30/17 06/30/17 23:59 07:59 15:59 Intake Total 300 / 300 1900 / 1900 Balance 300 / 300 1900 / 1900 Intake: IV Fluids 300 / 300 1100 / 1100 0.9 % Sodium Chloride 1,000 ML 1000 / 1000 @ 100 mls/hr IVC .Q10H SARAH Rx#: [id number] Flagyl Premix 500 MG/100 ML 500 100 / 100 100 / 100 mg In 100 ml @ 100 mls/hr IVPB Q8HR SARAH Rx#:[id number] Zosyn Premix 3.375 GM/200 ML 3. 200 / 200 375 gm In 200 ml @ 50 mls/hr IVPB Q8H SARAH Rx#:[id number] Oral 800 / 800 Other: # Voids 5 3 # Bowel Movements 2 Weight 85.4 kg Patient Weight 06/30/17 23:59 Weight 85.4 kg - General physical appearance well developed, well nourished, no distress - Eyes normal ocular movement - ENT normal nares - Respiratory normal expansion, normal respiratory effort, clear to auscultation - Cardiovascular Cardiovascular exam: Present: RRR - Abdomen Abdomen: Present: bowel sounds present, soft, non tender. Absent: guarding, rebound - Integumentary no abnormal pigmentation - Psychiatric oriented to time, oriented to person, oriented to place - Labs 06/30/17 03:45 06/30/17 03:45 Diabetes panel 06/29/17 06/29/17 06/30/17 Range/Units 09:57 11:50 03:45 Sodium 135 L 134 L (136-145) mEq/L Potassium 3.0 L 3.0 L 2.8 L (3.5-5.1) mEq/L Chloride 99 100 (98-107) mEq/L Carbon Dioxide 27 26 (23-29) mEq/L BUN 12 9 (6-20) mg/dL Creatinine 1.06 1.03 (0.60-1.20) mg/dL Glucose 100 95 (70-105) mg/dL Calcium 8.3 L 8.0 L (8.6-10.3) mg/dL AST 14 11 L (13-39) Units/L ALT 25 20 (7-52) Units/L Alkaline Phosphatase 115 H 96 (34-104) Units/L Albumin 2.6 L 2.5 L (3.5-5.7) g/dL Calcium panel 06/29/17 06/30/17 Range/Units 11:50 03:45 Calcium 8.3 L 8.0 L (8.6-10.3) mg/dL Albumin 2.6 L 2.5 L (3.5-5.7) g/dL Pituitary panel 06/29/17 06/29/17 06/30/17 Range/Units 09:57 11:50 03:45 Sodium 135 L 134 L (136-145) mEq/L Potassium 3.0 L 3.0 L 2.8 L (3.5-5.1) mEq/L Chloride 99 100 (98-107) mEq/L Carbon Dioxide 27 26 (23-29) mEq/L BUN 12 9 (6-20) mg/dL Creatinine 1.06 1.03 (0.60-1.20) mg/dL Glucose 100 95 (70-105) mg/dL Calcium 8.3 L 8.0 L (8.6-10.3) mg/dL Adrenal panel 06/29/17 06/29/17 06/30/17 Range/Units 09:57 11:50 03:45 Sodium 135 L 134 L (136-145) mEq/L Potassium 3.0 L 3.0 L 2.8 L (3.5-5.1) mEq/L Chloride 99 100 (98-107) mEq/L Carbon Dioxide 27 26 (23-29) mEq/L BUN 12 9 (6-20) mg/dL Creatinine 1.06 1.03 (0.60-1.20) mg/dL Glucose 100 95 (70-105) mg/dL Calcium 8.3 L 8.0 L (8.6-10.3) mg/dL Total Bilirubin 1.0 0.9 (0.3-1.0) mg/dL AST 14 11 L (13-39) Units/L ALT 25 20 (7-52) Units/L Alkaline Phosphatase 115 H 96 (34-104) Units/L Albumin 2.6 L 2.5 L (3.5-5.7) g/dL Consult Discharge Plan - Plan Referrals: Jas Monge MD [Primary Care Provider] - <Rikki Roche - Last Filed: 07/01/17 08:55> Date of Encounter: 06/30/17 Objective Vital Signs - Last 8 Hours Temp Pulse Resp BP Pulse Ox 07/01/17 06:44 99.8 F H 99 15 128/77 96 07/01/17 04:21 97.9 F 91 17 123/71 96 Intake and Output 06/30/17 07/01/17 07/01/17 23:59 07:59 15:59 Intake Total 660 / 660 1000 / 1000 Output Total 200 / 200 Balance 660 / 660 800 / 800 Intake: IV Fluids 300 / 300 1000 / 1000 0.9 % Sodium Chloride 1,000 ML 1000 / 1000 @ 75 mls/hr IVC .[id number] SARAH Rx #:[id number] Flagyl Premix 500 MG/100 ML 500 100 / 100 mg In 100 ml @ 100 mls/hr IVPB Q8HR SARAH Rx#:[id number] Zosyn Premix 3.375 GM/200 ML 3. 200 / 200 375 gm In 200 ml @ 50 mls/hr IVPB Q8H SARAH Rx#:[id number] Oral 360 / 360 Output: Urine 200 / 200 Other: Weight 84 kg Patient Weight 07/01/17 23:59 Weight 84 kg - Labs 07/01/17 04:15 07/01/17 04:15 Diabetes panel 07/01/17 Range/Units 04:15 Sodium 136 (136-145) mEq/L Potassium 2.9 L (3.5-5.1) mEq/L Chloride 104 (98-107) mEq/L Carbon Dioxide 23 (23-29) mEq/L BUN 7 (6-20) mg/dL Creatinine 0.98 (0.60-1.20) mg/dL Glucose 100 (70-105) mg/dL Calcium 8.2 L (8.6-10.3) mg/dL Calcium panel 07/01/17 Range/Units 04:15 Calcium 8.2 L (8.6-10.3) mg/dL Phosphorus 2.4 L (2.7-4.5) mg/dL Pituitary panel 07/01/17 Range/Units 04:15 Sodium 136 (136-145) mEq/L Potassium 2.9 L (3.5-5.1) mEq/L Chloride 104 (98-107) mEq/L Carbon Dioxide 23 (23-29) mEq/L BUN 7 (6-20) mg/dL Creatinine 0.98 (0.60-1.20) mg/dL Glucose 100 (70-105) mg/dL Calcium 8.2 L (8.6-10.3) mg/dL Adrenal panel 07/01/17 Range/Units 04:15 Sodium 136 (136-145) mEq/L Potassium 2.9 L (3.5-5.1) mEq/L Chloride 104 (98-107) mEq/L Carbon Dioxide 23 (23-29) mEq/L BUN 7 (6-20) mg/dL Creatinine 0.98 (0.60-1.20) mg/dL Glucose 100 (70-105) mg/dL Calcium 8.2 L (8.6-10.3) mg/dL - Attending Attestation I examined this patient and my medical decision-making was reviewed with the Resident Physician. I agree with the documented findings, disposition and treatment plan as described except to the extent set forth below. The patient was seen and evaluated with the resident on morning rounds. She only had 2 bowel movements. Her pancolitis is improved. I would like to have her evaluated by gastroenterology. We will sign off at this point. Rikki Roche MD FACS
--- NOTE | 2017-06-30 09:46 | Electrocardiograph Report ---
[place] [id number] Test Date: 2017-06-29 Pat Name: Aziza Peterson Department: 102 Room: [facility] Gender: F Twister Hand: Alverto : 1970 Requested By: Franko Machado Order Number: [id number] Reading MD: Sabrina Garcia Measurements Intervals [place] Rate: 93 P: 55 NH: 168 QRS: 29 QRSD: 93 T: 60 QT: 344 QTc: 395 Interpretive Statements SINUS RHYTHM Electronically Signed On 06-30-2017 9:44:38 EST by Sabrina Garcia
--- NOTE | 2017-06-30 11:31 | Internal Med Progress Note ---
Date of Encounter: 06/30/17 Time of Encounter: 10:45 - Assessment and plan (1) Diarrhea Current Visit: Yes Status: Acute Assessment and plan: Improving concern for infectious vs. inflammatory process continue Zosyn and Flagyl surgery evaluation appreciated GI evaluation requested clear liquid diet IV fluids leukocytosis persists but improved from previous day Qualifiers: Diarrhea type: unspecified type Qualified Code(s): R19.7 - Diarrhea, unspecified (2) Pelvic abscess in female Current Visit: Yes Status: Acute Assessment and plan: clinically improving will f/u with GI given size of the abscess, concern if pt will need surgical evaluation for drainage GI and surgery on board continue empiric abx at this time (3) Acute kidney injury Current Visit: Yes Status: Resolved (4) Hypertension Current Visit: Yes Status: Acute Assessment and plan: BP within acceptable range however noted to have HR in 90s Pt on Labetalol 200mg PO qd at home, will start at labetalol 100mg pO qd will closely monitor Qualifiers: Hypertension type: unspecified Qualified Code(s): I10 - Essential (primary ) hypertension (5) Elevated troponin Current Visit: Yes Status: Acute Assessment and plan: serial TNI trending down no signs of angina present at this time will continue to closely monitor (6) DVT prophylaxis Current Visit: Yes Status: Acute Assessment and plan: Heparin SQ (7) Electrolyte abnormality Current Visit: Yes Status: Acute Assessment and plan: Hypokalemia and Hypomagnesemia K and Mg supplemented continue to monitor electrolytes and replace as needed - Subjective Interval history: Patient seen and examined at bedside. Resting in bed and reports of improvement in her diarrhea States she had one semi formed bowel movement this morning Denies any abd pain, n/v at this time Pt potassium currently being replaced 40meq IV x 2 doses I spoke with Dr. Hutchinson who will see the patient later today. - Constitutional Vitals: Temp Pulse Resp BP Pulse Ox 101.9 F H 88 14 122/81 96 06/30/17 07:34 06/30/17 07:34 06/30/17 07:34 06/30/17 07:34 06/30/17 07:34 General appearance: Present: A&O X 3, no acute distress, answers questions appropriately - Head Head exam: Present: atraumatic, normocephalic - Eye Eye exam: Present: conjuntiva pink, sclera anicteric - Respiratory Respiratory exam: Present: CTAB. Absent: accessory muscle use, rales, rhonchi, wheezes - Cardiovascular Cardiovascular exam: Present: RRR, +S1, +S2. Absent: diastolic murmur, gallop, rubs, systolic murmur - GI/Abdominal GI/Abdominal exam: Present: normal bowel sounds, soft, no peritoneal signs. Absent: distended, tenderness - Extremities Exam Extremities exam: Present: warm, radial pulses palpable and symmetrical. Absent : calf tenderness, pedal edema - Neurological Exam Neurological exam: Present: alert, oriented X3 Internal Medicine: Result - Labs CBC & Chem 7: 06/30/17 03:45 06/30/17 03:45 Labs: Short CBC 06/30/17 Range/Units 03:45 WBC 13.1 H (4.3-11.1) K/mcL Hgb 10.3 L D (11.5-15.4) g/dL Hct 32.4 L (35.3-44.9) % Plt Count 184 (140-400) K/mcL Neutrophils # 10.8 H (1.6-8.9) K/mcL BMP 06/29/17 06/30/17 11:50 03:45 Sodium 135 L 134 L Potassium 3.0 L 2.8 L Chloride 99 100 Carbon Dioxide 27 26 BUN 12 9 Creatinine 1.06 1.03 Glucose 100 95 Calcium 8.3 L 8.0 L Cardiac Enzymes 06/29/17 Range/Units 16:15 Troponin I 0.03 (< 0.04) ng/mL Liver Function 06/29/17 06/30/17 Range/Units 11:50 03:45 Total Bilirubin 1.0 0.9 (0.3-1.0) mg/dL AST 14 11 L (13-39) Units/L ALT 25 20 (7-52) Units/L Alkaline Phosphatase 115 H 96 (34-104) Units/L Albumin 2.6 L 2.5 L (3.5-5.7) g/dL Consult Discharge Plan - Plan Referrals: Jas Monge MD [Primary Care Provider] -
--- NOTE | 2017-06-30 16:06 | Gastroenterology Consult Note ---
<Abdon Lewis Jaret - Last Filed: 06/30/17 16:02> Date of Encounter: 06/30/17 Time of Encounter: 12:15 - Assessment and plan (1) Diarrhea Current Visit: Yes Status: Acute Assessment and plan: Improving. Pt with 10 days of diarrhea. GI panel negative. No need for colonoscopy at this time. Continue to monitor. Start daily fiber supplement. Qualifiers: Diarrhea type: unspecified type Qualified Code(s): R19.7 - Diarrhea, unspecified (2) Pelvic abscess in female Current Visit: Yes Status: Acute Assessment and plan: Continue IV antibiotics. Dr. Hutchinson to review CT, abscess may need drainage. - Time Spent With Patient Total time spent is greater than 50% in coordination of care (as documented) at patient's floor/unit and/or counseling patient: GI History of Present Illness - Data of Consult Patient: new to practice Consult date: 06/30/17 Requesting Physician: Melonie Saldana MD - Consult Narrative Reason for consult: Diarrhea, pelvic abscess History of present illness: Ms. Peterson is a 46 year old female with PMHx of HTN who presented to the ED with complaints of watery diarrhea for 10 days prior to admission. She denies recent antibiotic use, travel, hematemesis, melena, hematochezia, abdominal pain. CT A/ P with multiple abscess cavities in the pelvis, possible perforated appendix, and thickend cecum. She was started on IV Zosyn and Flagyl. Pt states her diarrhea is improving. Procedures: None NSAIDs: None Anticoagulation: None Past Med Surg Social Fam HX - Past Medical History Medical history: hypertension Psychiatric history: no psych history - Past Surgical History Surgical History: - Social History Smoking Status: Never smoker Smokeless Tobacco Status: No Alcohol use: none Drug use: none - Gastrointestinal Gastrointestinal: Present: as per HPI - Constitutional Constitutional: as per HPI - EENT Eyes: as per HPI Ears: Present: as per HPI Nose, mouth and throat: Present: as per HPI - Cardiovascular Cardiovascular ROS: Present: as per HPI - Respiratory Respiratory IM: Present: as per HPI - Genitourinary Genitourinary: Absent: change in color, Urinary frequency - Neurological ROS Neurological GI: Absent: as per HPI - Hematologic/Lymphatic Hematologic/Lymphatic pediatric: Absent: as per HPI - Musculoskeletal Musculoskeletal ROS GI: Absent: as per HPI - Integumentary Integumentary GI: Absent: as per HPI - Psychiatric ROS Psychiatric GI: Absent: as per HPI - Endocrine Endocrine IM: Absent: as per HPI - Constitutional Vitals: Temp Pulse Resp BP Pulse Ox 98.5 F 83 14 123/61 99 06/30/17 11:52 06/30/17 11:52 06/30/17 11:52 06/30/17 11:52 06/30/17 11:52 General appearance: Present: cooperative, A&O X 3, no acute distress, answers questions appropriately - Head Head exam: Present: atraumatic, normocephalic - Eye Eye exam: Present: normal appearance, sclera anicteric - ENT ENT exam: Present: mucous membranes moist - Neck Neck exam general surgery: Present: normal inspection, trachea midline - Respiratory Respiratory exam: Present: CTAB. Absent: rales, rhonchi - Cardiovascular Cardiovascular exam: Present: RRR, +S1, +S2 - GI/Abdominal GI/Abdominal exam: Present: soft, no peritoneal signs. Absent: distended, firm , guarding, tenderness - Rectal Rectal exam: Present: deferred - Extremities Exam Extremities exam: Present: warm - Neurological Exam Neurological exam: Present: no focal deficits - Psychiatric Psychiatric exam: Present: normal affect, normal mood - Skin Skin exam: Present: dry, intact, normal color, warm Results - Labs CBC & Chem 7: 06/30/17 03:45 06/30/17 03:45 Labs: Last Result Calcium 8.0 mg/dL (8.6-10.3) L 06/30/17 03:45 Troponin I 0.03 ng/mL (< 0.04) 06/29/17 16:15 C-Reactive Protein 196 mg/L (Less than 10) H 06/30/17 03:45 Stool Occult Blood Negative (Negative) 06/29/17 08:30 Entire Visit Hgb 10.3 g/dL (11.5-15.4) L D 06/30/17 03:45 Hct 32.4 % (35.3-44.9) L 06/30/17 03:45 Total Bilirubin 0.9 mg/dL (0.3-1.0) 06/30/17 03:45 AST 11 Units/L (13-39) L 01/08/18 03:45 ALT 20 Units/L (7-52) 06/30/17 03:45 Lipase 16 Units/L (11-82) 06/29/17 02:30 Consult Discharge Plan - Plan Referrals: Jas Monge MD [Primary Care Provider] - <Faizan Hutchinson - Last Filed: 06/30/17 18:17> Date of Encounter: 06/30/17 Time of Encounter: 17:00 - Time Spent With Patient Total time spent is greater than 50% in coordination of care (as documented) at patient's floor/unit and/or counseling patient: GI History of Present Illness - Data of Consult Requesting Physician: Melonie Saldana MD - Consult Narrative History of present illness: Ms. Peterson is a 46 year old female - Constitutional Vitals: Temp Pulse Resp BP Pulse Ox 100.2 F H 92 14 135/74 96 06/30/17 17:05 06/30/17 17:05 06/30/17 17:05 06/30/17 17:05 06/30/17 17:05 Results - Labs CBC & Chem 7: 06/30/17 03:45 06/30/17 03:45 Labs: Last Result Calcium 8.0 mg/dL (8.6-10.3) L 06/30/17 03:45 Troponin I 0.03 ng/mL (< 0.04) 06/29/17 16:15 C-Reactive Protein 196 mg/L (Less than 10) H 06/30/17 03:45 Stool Occult Blood Negative (Negative) 06/29/17 08:30 Entire Visit Hgb 10.3 g/dL (11.5-15.4) L D 06/30/17 03:45 Hct 32.4 % (35.3-44.9) L 06/30/17 03:45 Total Bilirubin 0.9 mg/dL (0.3-1.0) 06/30/17 03:45 AST 11 Units/L (13-39) L 06/30/17 03:45 ALT 20 Units/L (7-52) 06/30/17 03:45 Lipase 16 Units/L (11-82) 06/29/17 02:30 - Attending Attestation I examined this patient and my medical decision-making was reviewed with the Resident Physician. I agree with the documented findings, disposition and treatment plan as described except to the extent set forth below. Patient 46-year-old white female with the 10 days history of diarrhea and some abdominal cramping now the CT showing thickening of the cecum and pelvic abscesses. Clinically she is doing much better denies any abdominal pain no tenderness on palpation. Rec: Will recommend continuing IV antibiotics for now. colonoscopy in 2-3 months once the abscesses are resolved.
[2017-07-01 04:35] LABS: Basophils % 0.2 %; Eosinophils % 0.2 %; Hemoglobin 9.9 g/dL (11.5-15.4); Immature Granulocytes % 1.2 % (0-4); Lymphocytes # 0.5 K/mcL (0.6-4.6); Lymphocytes % 4.2 %; Mean Corpuscular HGB Conc 31.9 g/dL (31.6-35.5); Mean Corpuscular Hemoglobin 26.1 pg (28.0-33.3); Mean Corpuscular Volume 81.6 fL (83.0-100.0); Mean Platelet Volume 9.9 fL (9.4-12.4); Monocytes # 1.2 K/mcL (0.0-1.3); Monocytes % 9.5 %; Neutrophils # 10.9 K/mcL (1.6-8.9); Platelet Count 210 K/mcL (140-400); Segmented Neutrophils % 84.7 %
[2017-07-01 04:55] LABS: BUN/Creatinine Ratio 7 (6-26); Blood Urea Nitrogen 7 mg/dL (6-20); Calcium 8.2 mg/dL (8.6-10.3); Carbon Dioxide 23 mEq/L (23-29); Chloride 104 mEq/L (98-107); Glucose 100 mg/dL (70-105); Magnesium 1.5 mg/dL (1.6-2.6); Osmolality,Calculated 280 (280-300); Phosphorous 2.4 mg/dL (2.7-4.5); Potassium 2.9 mEq/L (3.5-5.1); Sodium 136 mEq/L (136-145); eGFR For African Americans > 60 (> 60); eGFR For Non-African Americans > 60 (> 60)
[2017-07-01] MEDS: *HR* Heparin 5,000 UNIT/ML VIAL SQ SCH ×2 (06:47→18:29)
[2017-07-01] MEDS: 0.9 % Sodium Chloride 1,000 ML IVC SCH (06:47)
[2017-07-01] MEDS: MetroNIDAZOLE 500 MG/100 ML 500 MG/100 ML BAG IVPB SCH (09:19)
[2017-07-01] MEDS: Psyllium 1 PACKET POWD.PACK PO SCH ×3 (09:19→21:21)
[2017-07-01] MEDS: Pantoprazole 40 MG VIAL IVP SCH (09:20)
--- NOTE | 2017-07-01 09:51 | Internal Med Progress Note ---
<Skye Noelno - Last Filed: 07/01/17 14:04> Date of Encounter: 07/01/17 Time of Encounter: 09:51 - Assessment and plan (1) Diarrhea Current Visit: Yes Status: Acute Assessment and plan: Continues having diarrhea q3hr Stool panel negative Diet advancing from clears to full Fiber supplement GI suggests colonoscopy 2-3 months after resolution of abscesses Qualifiers: Diarrhea type: unspecified type Qualified Code(s): R19.7 - Diarrhea, unspecified (2) Hypokalemia Current Visit: Yes Status: Acute Assessment and plan: Patient's potassium is still low at 2.9. Will administer an additional 40 meq po Will recheck potassium at 4 (3) Hypomagnesemia Current Visit: Yes Status: Acute Assessment and plan: Mg 1.5 this morning Continue to replace Mg. (4) Acute kidney injury Current Visit: Yes Status: Resolved (5) Pelvic abscess in female Current Visit: Yes Status: Acute Assessment and plan: Continue zosyn, discontinue flagyl. No plan for surgery currently. Will consult cake batter mixer (6) Elevated troponin Current Visit: Yes Status: Acute Assessment and plan: No anginal symptoms. Likely demand ischemia. Will monitor. (7) Hypertension Current Visit: Yes Status: Acute Assessment and plan: BP controlled HR elevated Will continue to monitor Qualifiers: Hypertension type: unspecified Qualified Code(s): I10 - Essential (primary ) hypertension - Subjective Interval history: Aziza is still having diarrhea today, about every 3 hours. She still has no cramping or abdominal pain and denies any blood in stool. She denies nausea and vomiting. She is concerned about her hypokalemia. - Constitutional Vitals: Temp Pulse Resp BP Pulse Ox 99.8 F H 99 15 128/77 96 07/01/17 06:44 07/01/17 06:44 07/01/17 06:44 07/01/17 06:44 07/01/17 06:44 General appearance: Present: cooperative, A&O X 3, no acute distress, answers questions appropriately - Head Head exam: Present: atraumatic, normal inspection, normocephalic - Respiratory Respiratory exam: Present: CTAB. Absent: accessory muscle use, respiratory distress - Cardiovascular Cardiovascular exam: Present: +S1, +S2, tachycardia - GI/Abdominal GI/Abdominal exam: Present: normal bowel sounds, soft, no peritoneal signs. Absent: guarding, rebound, tenderness - Extremities Exam Extremities exam: Absent: pedal edema - Neurological Exam Neurological exam: Present: alert, oriented X3 - Psychiatric Psychiatric exam: Present: anxious, normal affect, normal mood - Skin Skin exam: Present: dry, warm Internal Medicine: Result - Labs CBC & Chem 7: 07/01/17 04:15 07/01/17 04:15 Labs: Short CBC 07/01/17 Range/Units 04:15 WBC 12.9 H (4.3-11.1) K/mcL Hgb 9.9 L (11.5-15.4) g/dL Hct 31.0 L (35.3-44.9) % Plt Count 210 (140-400) K/mcL Neutrophils # 10.9 H (1.6-8.9) K/mcL BMP 07/01/17 04:15 Sodium 136 Potassium 2.9 L Chloride 104 Carbon Dioxide 23 BUN 7 Creatinine 0.98 Glucose 100 Calcium 8.2 L - VTE Documentation of Mechanical Device: Intermittent pneumatic compression device Consult Discharge Plan - Plan Referrals: Jas Monge MD [Primary Care Provider] - <Guille Samaniego - Last Filed: 07/01/17 17:53> Date of Encounter: 07/01/17 - Constitutional Vitals: Temp Pulse Resp BP Pulse Ox 98.1 F 84 14 119/62 98 07/01/17 15:51 07/01/17 15:51 07/01/17 15:51 07/01/17 15:51 07/01/17 15:51 Internal Medicine: Result - Labs CBC & Chem 7: 07/01/17 04:15 07/01/17 15:45 Labs: Short CBC 07/01/17 Range/Units 04:15 WBC 12.9 H (4.3-11.1) K/mcL Hgb 9.9 L (11.5-15.4) g/dL Hct 31.0 L (35.3-44.9) % Plt Count 210 (140-400) K/mcL Neutrophils # 10.9 H (1.6-8.9) K/mcL BMP 07/01/17 07/01/17 04:15 15:45 Sodium 136 Potassium 2.9 L 3.1 L Chloride 104 Carbon Dioxide 23 BUN 7 Creatinine 0.98 Glucose 100 Calcium 8.2 L - Attending Attestation I examined this patient and my medical decision-making was reviewed with the Resident Physician on 07/01/17. I agree with the documented findings, disposition and treatment plan as described except to the extent set forth below. Seen and examined at the bedside 46 F who is admitted for infectious colitis with abscesses in the pelvis, diarrhea, hypokalemia, hypomagnesemia HEATHER She is seen and evaluated at bedside, asking to attempt diet upgrade She states diarrhea has improved GI and Surgery plan no intervention, we side curbed radiologist who doesnt think abscesses are from pelvic organs, patient otherwise hemodynamically stable and white count is improving Physical exam is unremarkable Labs and Imaging reviewed: K 2.9, mag 1.5, CT scan noted. We will continue antibiotics, aggressive electrolyte replacement, advance diet and continue to monitor. HEATHER has resolved, anemia is chronic Rest of details as in the resident physicians documentation.
[2017-07-01] MEDS: Piperacillin/Tazobactam 3.375 GM/200 ML BAG IVPB SCH ×2 (13:10→18:29)
[2017-07-02] MEDS: Piperacillin/Tazobactam 3.375 GM/200 ML BAG IVPB SCH ×2 (01:14→08:44)
[2017-07-02 04:14] LABS: Basophils % 0.2 %; Eosinophils % 0.3 %; Hematocrit 31.7 % (35.3-44.9); Hemoglobin 10.2 g/dL (11.5-15.4); Lymphocytes # 0.5 K/mcL (0.6-4.6); Lymphocytes % 4.5 %; Mean Corpuscular HGB Conc 32.2 g/dL (31.6-35.5); Mean Corpuscular Hemoglobin 26.2 pg (28.0-33.3); Mean Corpuscular Volume 81.5 fL (83.0-100.0); Monocytes % 8.5 %; Neutrophils # 9.9 K/mcL (1.6-8.9); Platelet Count 243 K/mcL (140-400); Red Blood Count 3.89 M/mcL (3.82-4.97); Red Cell Distribution Width 14.2 % (11.5-14.5); Segmented Neutrophils % 85.5 %
[2017-07-02 04:24] LABS: BUN/Creatinine Ratio 6 (6-26); Blood Urea Nitrogen 6 mg/dL (6-20); Carbon Dioxide 24 mEq/L (23-29); Chloride 104 mEq/L (98-107); Glucose 102 mg/dL (70-105); Osmolality,Calculated 280 (280-300); Sodium 136 mEq/L (136-145); eGFR For African Americans > 60 (> 60); eGFR For Non-African Americans > 60 (> 60)
[2017-07-02] MEDS: *HR* Heparin 5,000 UNIT/ML VIAL SQ SCH ×2 (05:13→21:23)
[2017-07-02] MEDS: Pantoprazole 40 MG VIAL IVP SCH (08:44)
[2017-07-02] MEDS: Psyllium 1 PACKET POWD.PACK PO SCH (08:44)
--- NOTE | 2017-07-02 12:08 | Internal Med Progress Note ---
Date of Encounter: 07/02/17 Time of Encounter: 10:45 - Assessment and plan (1) Colitis presumed infectious Current Visit: Yes Status: Acute Assessment and plan: Improving, diarrhea is improving, leukocytosis is improving, patient is tolerating orally GI stool panel negative, C.diff negative Continue antibiotics-Has received 4 days of Zosyn, change to po flagyl and ciprofloxacin For outpatient colonoscopy in 2-3 months (2) Acute kidney injury Current Visit: Yes Status: Resolved Assessment and plan: Pre-renal, non-oliguric, due to diarrhea Resolved, continue to monitor (3) Hyponatremia Current Visit: Yes Status: Resolved Assessment and plan: Resolved (4) Pelvic abscess in female Current Visit: Yes Status: Acute Assessment and plan: GI and Surgery eval noted, no intervention, no recent procedures, patient is improving on antibiotics, continue same (5) Hypokalemia Current Visit: Yes Status: Acute Assessment and plan: Improving, continue replacement (6) DVT prophylaxis Current Visit: Yes Status: Acute Assessment and plan: Heparin SQ (7) Hypertension Current Visit: Yes Status: Chronic Assessment and plan: BP controlled HR elevated Will continue to monitor Qualifiers: Hypertension type: unspecified Qualified Code(s): I10 - Essential (primary ) hypertension (8) Hypomagnesemia Current Visit: Yes Status: Acute Assessment and plan: Replaced, repeat wit chem a.m - Subjective Interval history: 46 F who is admitted for infectious colitis with abscesses in the pelvis, diarrhea, hypokalemia, hypomagnesemia HEATHER, she is tolerating orally, no new complains, she had one episode of loose bowel movement this morning, no other complains. - Constitutional Vitals: Temp Pulse Resp BP Pulse Ox 99.8 F H 93 16 125/78 95 07/02/17 12:04 07/02/17 12:04 07/02/17 12:04 07/02/17 12:04 07/02/17 12:04 General appearance: Present: cooperative, A&O X 3, no acute distress, answers questions appropriately - Head Head exam: Present: atraumatic, normocephalic - Eye Eye exam: Present: PERRL, conjuntiva pink, sclera anicteric Pupils: Present: PERRL - Neck Neck exam general surgery: Present: supple, trachea midline. Absent: lymphadenopathy - Respiratory Respiratory exam: Present: CTAB. Absent: accessory muscle use, rales, rhonchi, wheezes - Cardiovascular Cardiovascular exam: Present: RRR, +S1, +S2. Absent: diastolic murmur, gallop, rubs, systolic murmur - GI/Abdominal GI/Abdominal exam: Present: normal bowel sounds, soft, no peritoneal signs. Absent: distended, tenderness - Extremities Exam Extremities exam: Present: warm, radial pulses palpable and symmetrical. Absent : calf tenderness, cyanotic, pedal edema - Neurological Exam Neurological exam: Present: alert, CN II-XII intact, oriented X3, no focal deficits. Absent: pronater drift, facial droop, speech deficit - Skin Skin exam: Present: dry, intact Internal Medicine: Result - Labs CBC & Chem 7: 07/02/17 03:34 07/02/17 03:34 Labs: Short CBC 07/02/17 Range/Units 03:34 WBC 11.5 H (4.3-11.1) K/mcL Hgb 10.2 L (11.5-15.4) g/dL Hct 31.7 L (35.3-44.9) % Plt Count 243 (140-400) K/mcL Neutrophils # 9.9 H (1.6-8.9) K/mcL BMP 07/01/17 07/02/17 15:45 03:34 Sodium 136 Potassium 3.1 L 3.0 L Chloride 104 Carbon Dioxide 24 BUN 6 Creatinine 0.97 Glucose 102 Calcium 8.0 L - VTE Documentation of Mechanical Device: Intermittent pneumatic compression device Consult Discharge Plan - Plan Referrals: Jas Monge MD [Primary Care Provider] -
[2017-07-02] MEDS: metroNIDAZOLE 500 MG TABLET PO SCH ×2 (16:21→21:22)
[2017-07-03 05:33] LABS: Basophils % 0.3 %; Eosinophils # 0.1 K/mcL (0.0-0.6); Eosinophils % 0.6 %; Hematocrit 31.6 % (35.3-44.9); Hemoglobin 10.2 g/dL (11.5-15.4); Lymphocytes # 0.6 K/mcL (0.6-4.6); Lymphocytes % 5.6 %; Mean Corpuscular HGB Conc 32.3 g/dL (31.6-35.5); Mean Corpuscular Hemoglobin 26.4 pg (28.0-33.3); Mean Corpuscular Volume 81.7 fL (83.0-100.0); Mean Platelet Volume 10.1 fL (9.4-12.4); Monocytes # 1.1 K/mcL (0.0-1.3); Monocytes % 10.3 %; Neutrophils # 8.6 K/mcL (1.6-8.9); Platelet Count 219 K/mcL (140-400); Red Blood Count 3.87 M/mcL (3.82-4.97); Red Cell Distribution Width 14.2 % (11.5-14.5); Segmented Neutrophils % 82.2 %
[2017-07-03 05:45] LABS: BUN/Creatinine Ratio 7 (6-26); Blood Urea Nitrogen 6 mg/dL (6-20); Calcium 7.9 mg/dL (8.6-10.3); Carbon Dioxide 26 mEq/L (23-29); Chloride 103 mEq/L (98-107); Glucose 101 mg/dL (70-105); Magnesium 1.6 mg/dL (1.6-2.6); Osmolality,Calculated 278 (280-300); Sodium 135 mEq/L (136-145); eGFR For African Americans > 60 (> 60); eGFR For Non-African Americans > 60 (> 60)
[2017-07-03] MEDS: *HR* Heparin 5,000 UNIT/ML VIAL SQ SCH (06:03)
[2017-07-03 08:14] VITALS: BP 126/73
[2017-07-03] MEDS: metroNIDAZOLE 500 MG TABLET PO SCH (08:25)
--- NOTE | 2017-07-03 12:36 | Discharge Summary ---
Date of Encounter: 07/03/17 Time of Encounter: 09:10 - Discharge Diagnosis (1) Colitis presumed infectious Priority: Primary Status: Acute (2) Acute kidney injury Priority: Primary Status: Resolved (3) Hyponatremia Priority: Primary Status: Resolved (4) Pelvic abscess in female Priority: Primary Status: Acute (5) Hypokalemia Priority: Primary Status: Resolved (6) DVT prophylaxis Priority: Primary Status: Acute (7) Hypertension Priority: Secondary Status: Chronic Qualifiers: Hypertension type: unspecified Qualified Code(s): I10 - Essential (primary ) hypertension (8) Hypomagnesemia Priority: Primary Status: Resolved - Discharge Medications Prescriptions: Ciprofloxacin [Cipro] 250 mg PO BID #6 tablet metroNIDAZOLE [Flagyl] 500 mg PO TID #12 tablet Omeprazole [PriLOSEC] 20 mg PO DAILY@0630 #30 capsule. Potassium Chloride [K-Tab ER] 20 meq PO DAILY #10 tablet.er Home Medications: Labetalol HCl 200 mg PO DAILY 06/29/17 [History] Triamterene/HCTZ 37.5/25mg [Dyazide] 1 tab PO DAILY 06/29/17 [History] Ciprofloxacin [Cipro] 250 mg PO BID #6 tablet 07/03/17 [Rx] Omeprazole [PriLOSEC] 20 mg PO DAILY@0630 #30 capsule. 07/03/17 [Rx] Potassium Chloride [K-Tab ER] 20 meq PO DAILY #10 tablet.er 07/03/17 [Rx] metroNIDAZOLE [Flagyl] 500 mg PO TID #12 tablet 07/03/17 [Rx] Allergies/Adverse Reactions: 3 Allergy/AdvReac Type Severity Reaction Status Date / Time No Known Allergies Allergy Verified 06/29/17 00:29 Date of admission: 06/29/17 08:10 Primary care physician: Jas Monge, Consults: 06/29/17 08:18 Consult to Occupational Therapy [CONS] Routine Comment: Evaluate, develop and implement POC Reason for Consult: weakness Consult to Physical Therapy [CONS] Routine Comment: Evaluate, develop and implement POC Reason for Consult: weakness Discharging clinician: Guille Samaniego Anticipated date of discharge: 07/03/17 - Patient Status Disposition: Home, Self-Care Condition: Good Functional capacity at discharge: independent ambulation Overall status at discharge: patient is back to baseline - Discharge Instructions Instructions: Ciprofloxacin (By mouth), Potassium Chloride (By mouth), Metronidazole (By mouth), Omeprazole (By mouth), Dehydration (GEN), Hypokalemia (GEN), Hypomagnesemia (DC) Follow Up With: Jas Monge MD [Primary Care Provider] - 07/10/17 8:30 am (follow up with Dr. Jas Monge) - Diet and Activity Activity: resume usual activities as tolerated Diet: low salt diet Interval History: See below Hospital course: Ms. Peterson is a 46 year old female with medical history of hypertension was admitted to the hospital for management of infectious colitis complicated with pelvic abscesses. She also had acute kidney injury, and multiple electrolyte abnormalities including hypokalemia, hypomagnesemia, hyponatremia. The patient received antibiotics intravenously, supportive care with intravenous fluids, replacement of her multiple electrolyte abnormalities. She was reviewed by the gastroenterology team and Gen. surgery team, and was deemed to need any intervention surgically. Her diarrhea has resolved, her electrolytes have been stable and replaced, her blood pressure was controlled and she is alert and oriented and tolerating orally. She is seen and evaluated at bedside this morning, she has no new complaints. She is stable to be discharged home to complete 7 days of antibiotics, resume her home medications for hypertension, potassium supplements, and her regular diet. She is educated to follow up with her primary care doctor for chemistry to evaluate her potassium. She is also educated to have colonoscopy done in 2-3 months as outpatient. She verbalizes understanding. - Time Spent with Patient Total time spent providing and/or coordinating discharge services: Greater than 30 minutes - Constitutional Vitals: Temp Pulse Resp BP Pulse Ox 97.8 F 94 18 126/73 97 07/03/17 07:50 07/03/17 07:50 07/03/17 07:50 07/03/17 07:50 07/03/17 07:50 General appearance: Present: cooperative, A&O X 3, pleasant, no acute distress, answers questions appropriately - Head Head exam: Present: atraumatic, normocephalic - Eye Eye exam: Present: PERRL, conjuntiva pink, sclera anicteric Pupils: Present: PERRL - Neck Neck exam general surgery: Present: supple, trachea midline. Absent: lymphadenopathy - Respiratory Respiratory exam: Present: CTAB. Absent: accessory muscle use, rales, rhonchi, wheezes - Cardiovascular Cardiovascular exam: Present: RRR, +S1, +S2. Absent: diastolic murmur, gallop, rubs, systolic murmur - GI/Abdominal GI/Abdominal exam: Present: normal bowel sounds, soft, no peritoneal signs. Absent: distended, tenderness - Extremities Exam Extremities exam: Present: warm, radial pulses palpable and symmetrical. Absent : calf tenderness, cyanotic, pedal edema - Neurological Exam Neurological exam: Present: alert, CN II-XII intact, oriented X3, no focal deficits. Absent: pronater drift, facial droop, speech deficit - Skin Skin exam: Present: dry, intact - VTE Documentation of Mechanical Device: Intermittent pneumatic compression device
== END 2017-07-03 14:15 | disposition home or self-care (01) | DRG 758 ==
LOC: 2NENU 00:28 → EMEROO 00:28 → 2NENU 06:08 → SUATTDRO 08:10
PROVIDERS: ADMIT Internal Medicine; ATTEND Internal Medicine